=== PATIENT | female | born 1985 | race American Indian/Alaskan Native ===

== ENCOUNTER 2016-11-08 22:52 | Emergency (ER) | payer OTHER ==
[2016-11-08 23:24] VITALS: BP 132/83
--- NOTE | 2016-11-10 15:25 | ED Elopement Review ---
ED Pt Elopement review - Results review Lab results: Laboratory Tests 11/08/16 Unknown Urine HCG, Qual Negative - Call Back decision Pt Call Back Decision: No action required
== END 2016-11-09 01:10 | disposition left against medical advice (07) ==
LOC: ED 22:52
DX: M25.512 Pain in left shoulder (principal); M54.5 Low back pain; R10.9 Unspecified abdominal pain; Z53.21 Procedure and treatment not carried out due to patient leaving prior to being seen by health care provider
CPT/HCPCS: 81025